=== PATIENT | male | born 1955 | race Caucasian/White ===

== ENCOUNTER 2019-07-10 15:26 | Emergency (ER) | payer MEDICARE ==
[~2019-07-10] VITALS: Ht 185.4 cm; Wt 79.4 kg
[2019-07-10 16:12] VITALS: BP_SYST 155
--- NOTE | 2019-07-10 16:21 | NUR ---
Patient triaged and placed in waiting room. VSS and patient appears in no acute distress at this time. Accompanied by SELF, awaiting available bed, and MD notified of need for MSE.
--- NOTE | 2019-07-10 17:16 | NUR ---
Patient to ER bed 06 to gown for evaluation. Side rails up. Report given to RUBÉN Zee
--- NOTE | 2019-07-10 17:20 | NUR ---
Patient arrived in the ED c/o pain and swelling on the left side of his neck that started yesterday. Denied any recent injury or falls. Patient is alert and oriented x4, respirations even and unlabored, speaking in full sentences, ambulating with a steady gait. VSS, pain level 0/10. Denied any respiratory distress at this time. Informed of the wait time. INstructed to notify ED staff for any changes in condition or worsening of symptoms. Patient verbalized understanding.
--- NOTE | 2019-07-10 17:34 | NUR ---
ER Dr. Flower at bedside examining patient.
[2019-07-10 17:50] VITALS: BP_SYST 155
--- NOTE | 2019-07-10 17:50 | NUR ---
Patient given written and verbal discharge instructions and verbalizes understanding. ER MD discussed with patient the results and treatment provided. Patient in stable condition. ID arm band removed. Rx of Ibuprofen and Cephalexin given. Patient educated on pain management and to follow up with PMD. Pain Scale 0/10. Opportunity for questions provided and answered. Medication side effect fact sheet provided.
== END 2019-07-10 17:50 | disposition home or self-care (01) ==
LOC: SED 15:26
DX: K11.20 Sialoadenitis, unspecified (principal); F17.290 Nicotine dependence, other tobacco product, uncomplicated; Z71.6 Tobacco abuse counseling
CPT/HCPCS: 99283